=== PATIENT | male | born 1950 | race Caucasian/White ===

== ENCOUNTER 2017-06-04 11:00 | Outpatient (CLI) | payer MEDICARE, BC ==
--- NOTE | ~2017-06-04 | HEMODYNAMI ---
PATIENT:CHRISTA KINGSLEY MEDICAL RECORD: [id number] : 48 LOCATION:[facility] ADMISSION DATE: 06/04/17 Generatedon:06/04/201713:32 Patient name: CHRISTA KINGSLEY Patient #: [id number] SSN: D OB: 1950 Date of study: 06/04/2017 Page: Of Hemodynamic Procedure Report Patient Data Patient Demographics Procedure consent was obtained First Name: CHRISTA Gender: Male Last Name: SANCHO : 1950 Middle Initial: MATTHEW Age: 67 year(s) Patient #: [id number] Race: Additional ID: [id number] Contact details [address]: [address] [place] [address] ROAD State: [place] City: [place] Zip code: [address] Past Medical History Allergies Allergen Reaction Date Comments Reported Other allergy 04/25/2016 Sulfa Other allergy 06/04/2017 Sulfa, tape Admission Admission Data Admission Date: 06/04/2017 Admission Time: 11:00 Admit Source: Other Height (in.): 73 BSA: 2.3 (m2) Height (cm.): 185.42 BMI: 30.87 (kg/m2) Weight (lbs.): 234 Weight (kg.): 106.14 Lab Results Lab Result Date: 06/04/2017 Lab Result Time: 0:00 Biochemistry Name Units Result Min Max BUN mg/dl 22 --(----)-* 7 18 Creatinine mg/dl 1.4 --(----)*- 0.6 1.3 CBC Name Units Result Min Max Hemoglobin g/dl 14.3 --(*---)-- 13.5 17.5 Procedure Procedure Types Cath Procedure Diagnostic Procedure LHC LHC w/Coronaries w/Grafts Miscellaneous Procedures Moderate Sedation up to 30 minutes Procedure Description Procedure Date Procedure Date: 06/04/2017 Procedure Start Time: 13:07 Procedure End Time: 13:26 Procedure Staff Name Function Braden Higgins MD Performing Physician Angelita Rowland RT Scrub David Cam RN Nurse Delia Lamb RT Monitor Procedure Data Cath Procedure Fluoroscopy Diagnostic fluoroscopy Total fluoroscopy Time: 4.6 time: 4.6 min min Diagnostic fluoroscopy Total fluoroscopy dose: dose: 1031 mGy 1031 mGy Contrast Material Contrast Material Type Amount (ml) Isovue 300 124 Entry Location Entry Primary Successful Side Size Upsize Upsize Entry Closure Succes sful Closure Location (Fr) 1 (Fr) 2 (Fr) Remarks Device Remarks Femoral Right 5 Fr Exoseal artery Estimated blood loss: 5 ml Diagnostic catheters Device Type Used For End Catheter Placement Cordis 5Fr JL 4.0 Left Coronary Catheter (MP) Angiography Diagnostic Infinity 5Fr Right Coronary AR MOD Catheter Angiography Diagnostic Infinity 5Fr Multi-vessel IM catheter Angiography Cordis 5Fr Pigtail LV Angiography Catheter (MP) Procedure Complications No complications Procedure Medications Medication Administration Route Dosage Oxygen NC 2 l/min Lidocaine 2% added to field 20 Heparin Flush Bag added to field 2 bags (1000units/500ml NS) 0.9% NaCl I.V. 100 ml/hr Versed I.V. 1 mg Fentanyl I.V. 50 mcg Versed I.V. 1 mg Fentanyl I.V. 50 mcg Versed I.V. 1 mg Fentanyl I.V. 50 mcg Versed I.V. 1 mg Fentanyl I.V. 50 mcg Hemodynamics Rest BSA: 2.3 (m2) HGB: 14.3 (g/dl) O2 Consumption: Estimated: 268.73 (ml/min) O2 Con sumption indexed: Estimated:116.84 (ml/min/m) Heart Rate: 72 (bpm) Pressure Samples Time Site Value (mmHg) Purpose Heart Use Rate(bpm) 13:21 LV 125/9,26 Snapshot 77 Gradients Valve Time Site Site Mean SEP/DFP Peak To Heart Use 1 2 (mmHg) (sec/min) Peak Rate (mmHg) (bpm) Aortic 13:22 LV AO 77 Snapshots Pre Cath Intra NCS Post Cath Vital Signs Time Heart Resp SPO2 NIBP (mmHg) Rhythm Pain Sedation Rate (ipm) (%) Status Level (bpm) 12:50:51 72 19 99 137/77(111) NSR 0 (11) 10(A) , No pain 12:55:06 72 18 100 136/76(102) NSR 0 (11) 10(A) , No pain 12:59:19 74 16 100 125/75(99) NSR 0 (11) 10(A) , No pain 13:03:36 73 16 95 118/71(84) NSR 0 (11) 10(A) , No pain 13:07:46 73 14 100 129/78(106) NSR 0 (11) 10(A) , No pain 13:11:59 73 14 98 124/83(102) NSR 0 (11) 9(A) , No pain 13:16:11 74 15 98 124/77(107) NSR 0 (11) 9(A) , No pain 13:20:25 74 15 98 125/72(91) NSR 0 (11) 9(A) , No pain 13:24:41 74 17 97 113/70(87) NSR 0 (11) 10(A) , No pain 13:31:17 79 16 98 123/77(95) NSR 0 (11) 10(A) , No pain Medications Time Medication Route Dose Verified Delivered Reason Notes Effec tiveness by by 12:54:10 Oxygen NC 2 Braden Buffie used for l/min Ronaldo Cam RN procedure 12:54:16 Lidocaine 2% added 20ml Braden Buffie used for to vial Ronaldo Cam RN procedure field 12:54:54 Heparin Flush added 2 Braden Buffie used for Bag to bags Ronaldo Cam RN procedure (1000units/500ml field NS) 12:55:03 0.9% NaCl I.V. 100 Braden Buffie Per ml/hr Ronaldo Cam RN physician 13:02:51 Versed I.V. 1 mg Braden Buffie for Ronaldo Cam RN sedation 13:02:57 Fentanyl I.V. 50 Braden Buffie for mcg Ronaldo Cam RN sedation 13:07:15 Versed I.V. 1 mg Braden Buffie for Ronaldo Cam RN sedation 13:07:19 Fentanyl I.V. 50 Braden Buffie for mcg Ronaldo Cam RN sedation 13:14:09 Versed I.V. 1 mg Braden Buffie for Ronaldo Cam RN sedation 13:14:13 Fentanyl I.V. 50 Braden Buffie for mcg Ronaldo Cam RN sedation 13:18:19 Versed I.V. 1 mg Braden Buffie for Ronaldo Cam RN sedation 13:18:23 Fentanyl I.V. 50 Braden David for [facility] Ronaldo Cam RN sedation Procedure Log Time Note 12::52 Patient Height : 185.42 inches 12:19:56 Patient Weight : 106.14 lbs 12:19:56 Admit Source: Other 12:20:51 Diagnostic Cath status Elective 12:20:53 Angelita Rowland RT(R) sent for patient. Start room use. 12:20:54 Time tracking: Regular hours 12:20:59 Plan of Care:Hemodynamics will remain stable., Cardiac rhythm will remain stable., Comfort level will be maintained., Respiratory function will remain adequate., Patient/ family verbilizes understanding of procedure., Procedure tolerated without complication., Recovers from procedure without complications.. 12:49:41 Patient received from Pre/Post Procedure Room to CCL 2 Alert and oriented. Tansferred to table in Supine position. 12:49:42 Warm blankets applied, and federica hugger turned on for patient comfort. 12:49:42 Correct patient and procedure confirmed by team. 12:49:44 Signed procedure consent form obtained from patient. 12:49:45 ECG and BP/O2 sat monitors applied to patient. 12:49:46 Vital chart was started 12:49:48 Baseline sample Acquired. 12:49:51 Rhythm: sinus rhythm 12:49:52 Full Disclosure recording started 12:50:10 H&P Date Dictated: 05/30/2017 Within 30 days and on chart., H&P Addendum completed by physician on day of procedure. (MUST COMPLETE FOR ALL OUTPATIENTS). 12:50:11 Pre-procedure instructions explained to patient. 12:50:12 Pre-op teaching completed and patient verbalized understanding. 12:50:13 Family in waiting room. 12:50:14 Patient NPO since Midnight. 12:50:29 Patient allergic to Other allergySulfa, tape 12:50:32 Is the patient allergic to Iodine/contrast media? No. 12:50:33 Was the patient premedicated? No 12:50:34 Is patient on blood thinner?No 12:50:35 Patient diabetic? No. 12:50:37 Previous problem with sedation/anesthesia? No ? 12:50:39 Snore? No 12:50:40 Sleep apnea? No 12:50:41 Deviated septum? No 12:50:42 Opens mouth fully? Yes 12:50:42 Sticks out tongue? Yes 12:50:44 Airway obstruction? No ? 12:50:47 Dentures? No ? 12:50:51 Pre procedure: right dorsailis pedis pulse 2+ Normal; easily identifiable; not easily obliterated 12:50:54 Pre procedure: left dorsailis pedis pulse 2+ Normal; easily identifiable; not easily obliterated 12:50:55 Patient pain scale 0/10 ?. 12:51:04 IV patent on arrival in left forearm with 0.9% NaCl at [facility]. 12:53:11 Lab Result : BUN 22 mg/dl 12:53:11 Lab Result : Creatinine 1.4 mg/dl 12:53:11 Lab Result : Hemoglobin 14.3 g/dl 12:53:15 Lab results completed and on chart. 12:53:19 Right groin area was prepped with chlora-prep and draped in sterile fashion 12:53:20 Alarms reviewed by R. N. 12:53:20 Sharps counted by scrub and verified by R.N. 12:54:10 Oxygen 2 l/min NC was administered by David Cam RN; used for procedure; 12:54:16 Lidocaine 2% 20ml vial added to field was administered by David Cam RN; used for procedure; 12:54:54 Heparin Flush Bag (1000units/500ml NS) 2 bags added to field was administered by David Cam RN; used for procedure; 12:55:03 0.9% NaCl 100 ml/hr I.V. was administered by David Cam RN; Per physician; 12:56:27 Use device set Femoral Dx 12:56:28 Acist Syringe opened to sterile field. 12:56:29 Bag Decanter opened to sterile field. 12:56:29 Medline Cath Pack opened to sterile field. 12:56:30 Terumo 5Fr Iberia Sheath opened to sterile field. 12:56:31 St Alex 260cm J .035 wire opened to sterile field. 12:56:32 Acist Hand Control opened to sterile field. 12:56:32 Acist Manifold opened to sterile field. 12:56:33 Diagnostic Infinity 5Fr Multipack catheter opened to sterile field. 12:56:33 Tegaderm 4 x 4 opened to sterile field. 12:57:22 Zero performed for pressure channel P1 12:59:10 Physician arrived 12:59:11 --------ALL STOP TIME OUT------ 12:59:11 Final Timeout: patient, procedure, and site verified with staff and physician. All members of the team are in agreement. 12:59:13 Right groin site verified by team. 12:59:15 Physical assessment completed. ASA score P 2 - A patient with mild systemic disease as per Braden Higgins MD. 12:59:18 Sedation plan: IV Moderate Sedation Versed, Fentanyl 13:02:51 Versed 1 mg I.V. was administered by David Cam RN; for sedation; 13:02:57 Fentanyl 50 mcg I.V. was administered by David Cam RN; for sedation; 13:06:32 Procedure started. 13:07:15 Versed 1 mg I.V. was administered by David Cam RN; for sedation; 13:07:19 Fentanyl 50 mcg I.V. was administered by David Cam RN; for sedation; 13:07:31 Local anesthetic to right femoral artery with Lidocaine 2% by Braden Higgins MD.INITIAL ACCESS ONLY 13:07:39 A 5 Fr sheath was inserted into the Right Femoral artery 13:09:55 A Cordis 5Fr JL 4.0 Catheter () was advanced over the wire and used for Left Coronary Angiography. 13:10:17 LCA angiography performed. 13:10:20 Injector settings: Ml/sec: 3, Volume: 6, 13:11:36 Catheter removed. 13:11:57 A Diagnostic Infinity 5Fr AR MOD Catheter was advanced over the wire and used for Right Coronary Angiography. 13:12:45 RCA angiography performed. 13:12:48 Injector settings: Ml/sec: 3, Volume: 6, 13:14:09 Versed 1 mg I.V. was administered by David Cam RN; for sedation; 13:14:11 SVG to RCA angiography performed. 13:14:13 Fentanyl 50 mcg I.V. was administered by David Cam RN; for sedation; 13:15:24 SVG to Circ angiography performed. 13:16:18 Catheter removed. 13:17:48 A Diagnostic Infinity 5Fr IM catheter was advanced over the wire and used for Multi-vessel Angiography. 13:18:19 Versed 1 mg I.V. was administered by David Cam RN; for sedation; :18:23 Fentanyl 50 mcg I.V. was administered by David Cam RN; for sedation; 13:20:12 FLORES angiography performed. 13:20:17 Injector settings: Ml/sec: 3, Volume: 6, 13:20:20 Catheter removed. 13:20:25 A Cordis 5Fr Pigtail Catheter (MP) was advanced over the wire and used for LV Angiography. 13:21:52 LV hemodynamics recorded. 13:21:53 LV gram done using KATE 13::55 Injector settings: Ml/sec: 5, Volume: 15, 13:22:40 EF : 60 % 13:23:24 Aortic Root visualized 13:24:00 Catheter removed. 13:24:10 Cordis 5Fr Exoseal opened to sterile field. 13:24:27 Sheath removed intact; hemostasis achieved with Exoseal to the Right Femoral artery. 13:24:30 Procedure ended.(Physican Out) 13:24:58 Fluoroscopy time 04.60 minutes. 13:25:00 Contrast amount:Isovue 300 124ml. 13:25:02 Flurop Dose total: 1031 13:25:02 Fluoroscopy dose: 1031 mGy 13:25: Sharps counted by scrub and verified by R.N. 13:25:21 Insertion/operative site no bleeding no hematoma. 13:25:23 Post-op/insertion site Right Femoral artery dressed using a 4 x 4 and Tegaderm. 13:25:26 Post right femoral artery:stable 13:25:27 Post Procedure Pulses reassessed and unchanged 13:25:30 Post procedure rhythm: unchanged. 13:25:33 Estimated blood loss: 5 ml 13:25:34 Post procedure instruction explained to patient.Patient verbalizes understanding. 13:25:38 Patient needs reinforcement of post procedure teaching. 13:25:56 Procedure type changed to Cath procedure, Diagnostic procedure, LHC, LHC w/Coronaries w/Grafts, Miscellaneous Procedures, Moderate Sedation up to 30 minutes 13:25:57 Procedure and supply charges have been captured, reviewed, submitted and are correct. 13:26:02 Procedure Complication : No complications 13:26:05 Vital chart was stopped 13:26:06 See physician's report for complete and final results. 13:26:09 Report given to Pre/Post Procedure Room. 13:26:12 Patient transfered to Pre/Post Procedure Room with Stretcher. 13:26:15 Procedure ended. 13:26:15 Full Disclosure recording stopped 13:26:20 End room use (Document Last) Device Usage Item Name Manufacture Quantity Catalog Hospital Part Current Minimal Lo t# / Number Charge Number Stock Stock Serial# Code Acist Acist 1 [id number] [id number] 998538 032351 20 Syringe [employer] Bag Microtek 1 2002S 722703 70865 644568 5 Decanter [employer] Medline Cardinal 1 [id number] 682282 69591 465494 5 Cath Pack Health Terumo 5Fr Terumo 1 [id number] 468579 892876 135140 [address] [facility] Alex 1 330862 399396 555365 056865 30 260cm J .035 wire Acist Hand Acist 1 22535 427415 209764 375543 5 Control [employer] Inc Acist Acist 1 77620 206954 748999 431323 5 Manifold [employer] Diagnostic Cardinal 1 [id number] 706605 85524 181961 30 Infinity Health 5Fr Multipack catheter Tegaderm 4 3M 1 1626W 726523 020481 932822 5 x 4 Cordis 5Fr Cardinal 1 019497 5 JL 4.0 Health Catheter (MP) Diagnostic Cardinal 1 [id number] 180054 544124 143302 15 Infinity Health 5Fr AR MOD Catheter Diagnostic Cardinal 1 [id number] 052303 995464 027628 5 Inf[employer] Health 5Fr IM catheter Cordis 5Fr Cardinal 1 865998 5 Pigtail Health Catheter (MP) Cordis 5Fr Cardinal 1 EX500 406012 558450 177549 10 [employer] Signature Audit [place] Stage Time Signature Unsigned Intra-Procedure 06/04/2017 Delia Lamb 1:32:25 PM RT(R) Signatures Monitor : Delia Lamb RT Signature : Date : Time : [facility] [address] [place] [address]
[~2017-06-04 11:00] MED LIST: BAYER CHEWABLE81 MG PO; CLARITIN 10 MG10 MG PO; DIOVAN80 MG PO; HEMOCYTE PLUS C1 CAP PO; K-DUR20 MEQ PO; LASIX40 MG PO; LOPRESSOR25 MG PO; OMEPRAZOLE20 M1 PO; PROTONIX40 MG PO; ULTRAM50 MG PO; UROXATRAL10 MG PO; ZOCOR20 MG PO
[2017-06-04] MEDS ORDERED: LISINOPRIL5 MG PO (11:22)
[2017-06-04 11:33] VITALS: BP 145/84; BMI 29.0
[2017-06-04 11:47] LABS: BASOPHILS 0.8 % (0-2); EOSINOPHILS 5.3 % (0-7); HEMOGLOBIN 14.3 g/dL (13.5-17.5); IMMATURE GRANULOCYTES 0.1 % (0-5); LYMPHOCYTES 27.2 % (15-50); MCH 32.1 pg (26.0-34.0); MCHC 34.9 g/dL (31.0-37.0); MCV 92.1 fL (80.0-100.0); MEAN PLATELET VOLUME 9.6 fL (7.4-10.4); MONOCYTES 7.7 % (2-11); NEUTROPHILS 58.9 % (40-80); RBC 4.45 10x6/uL (4.20-6.10); RDW 13.3 % (11.5-14.5); WBC 7.7 10x3/uL (4.8-10.8)
[2017-06-04 11:57] LABS: ANION GAP 9.5 mmol/L (8-16); CALCIUM 8.9 mg/dL (8.5-10.1); CARBON DIOXIDE 26.9 mmol/L (21.0-32.0); CREATININE - SERUM 1.4 mg/dL (0.6-1.3); POTASSIUM - SERUM 4.4 mmol/L (3.5-5.1)
[2017-06-04 11:58] LABS: PLATELET COUNT 168 10x3/uL (130-400)
--- NOTE | 2017-06-04 14:23 | NUR ---
1400 LYING FLAT, ROOM AIR WITH NO DISTRESS. NSR RATE 59 WNO C/O CHEST PAIN. PULSES PALP X 4. R GROIN 5F EXOSEAL C/D/I W NO HEMATOMA OR BLEEDING. AT SIDE.
--- NOTE | 2017-06-04 15:25 | NUR ---
1430 REMIANS FLAT, ROOM AIR. R GROIN 5F EXO C/D/I. DENIES NEEDS AT THIS TIME. 1515 HOB ELEVATED, WILL MONITOR R GROINF OR BLEEDING. EATING TURKEY SANDWICH AND SIPPING SODA. ALL VITALS WNL.
--- NOTE | 2017-06-04 15:49 | NUR ---
PIV REMOVED FROM LEFT AC WITH BANDAID APPLIED. R GROIN REMAINS C/D/I WITH NO HEMATOMA OR BLEEDING. D/C INSTRUCTIONS DISCUSSED WITH PATIENT AND AT BEDSIDE. UP TO BEDSIDE TO DRESS WITH ASSIST FROM .
--- NOTE | 2017-06-04 16:06 | NUR ---
WHEELED TO BATHROOM TO VOID, WHEELED OUT VIA WHEELCHAIR BY CATH TEAM. AT SIDE.
== END 2017-06-04 16:07 | disposition home or self-care (01) ==
LOC: D.CATH 11:00
PROVIDERS: Internal Medicine Cardiovascular Disease
DX: I25.10 Atherosclerotic heart disease of native coronary artery without angina pectoris (principal); Z95.1 Presence of aortocoronary bypass graft; I35.1 Nonrheumatic aortic (valve) insufficiency; Z01.812 Encounter for preprocedural laboratory examination

== ENCOUNTER → 2018-09-01 10:32 | Outpatient (CLI) | payer MEDICARE, BC ==
[~2018-09-01 10:32] MED LIST changes: +LISINOPRIL5 MG PO
== END | disposition home or self-care (01) ==
LOC: D.HCCARDIO 10:32
DX: I25.10 Atherosclerotic heart disease of native coronary artery without angina pectoris (principal)

== ENCOUNTER 2018-10-08 07:56 | Outpatient (CLI) | payer MEDICARE, BC ==
[~2018-10-08] VITALS: Ht 188 cm; Wt 100.0 kg
[2018-10-08 08:27] LABS: BASOPHILS 1.2 % (0-2); EOSINOPHILS 8.9 % (0-7); HEMATOCRIT 39.9 % (42.0-54.0); HEMOGLOBIN 14.1 g/dL (13.5-17.5); IMMATURE GRANULOCYTES 0.2 % (0-5); LYMPHOCYTES 33.6 % (15-50); MCH 32.2 pg (26.0-34.0); MCHC 35.3 g/dL (31.0-37.0); MCV 91.1 fL (80.0-100.0); MEAN PLATELET VOLUME 9.4 fL (7.4-10.4); MONOCYTES 8.1 % (2-11); PLATELET COUNT 163 10x3/uL (130-400); RBC 4.38 10x6/uL (4.20-6.10); RDW 12.5 % (11.5-14.5); WBC 4.9 10x3/uL (4.8-10.8)
[2018-10-08 08:35] LABS: ANION GAP 14.8 mmol/L (8-16); CALCIUM 9.3 mg/dL (8.5-10.1); CARBON DIOXIDE 27.6 mmol/L (21.0-32.0); CREATININE - SERUM 1.4 mg/dL (0.6-1.3); POTASSIUM - SERUM 4.4 mmol/L (3.5-5.1)
[2018-10-08 08:45] VITALS: Ht 188 cm; Wt 100.0 kg
[2018-10-08 08:46] LABS: APTT 27.1 SECONDS (22.8-39.4); INR 0.99 (0.85-1.17); PROTIME 12.6 SECONDS (11.6-15.0)
--- NOTE | 2018-10-08 11:55 | NUR ---
REC'D FROM SPECIALS VIA BED ACCOMPANIED BY SPOUSE. LYLY FROM RADIOLOGY REPORTED HE CAN GO HOME DUE TO PROCEDURE BEING CANCELLED PER DR PETER. REGULAR TRAY SERVED AND THEN WILL DC.
--- NOTE | 2018-10-08 12:20 | NUR ---
IV DC'D WITH CATHETER INTACT. WRITTEN AND VERBAL DC INST TO FOLLOW UP WITH DR RODRIGUEZ GIVEN TO PT. VERBALIZED UNDERSTANDING.
--- NOTE | 2018-10-08 12:30 | NUR ---
DC'D HOME WITH FAMILY VIA PRIVATE VEHICLE. TAKEN TO VEHICLE VIA WC. STABLE AT TIME OF DC.
== END 2018-10-08 12:30 | disposition home or self-care (01) ==
LOC: D.SP 07:56 → D.CT 09:00 → D.SP 09:00
PROVIDERS: Specialist
DX: M48.8X4 Other specified spondylopathies, thoracic region (principal)

== ENCOUNTER → 2019-09-23 10:59 | Outpatient (CLI) | payer MEDICARE, BC ==
[2018-10-08 08:45] VITALS: BMI 28.3
== END | disposition home or self-care (01) ==
LOC: D.HCCECHO 10:59
PROVIDERS: ATTEND Internal Medicine Cardiovascular Disease
DX: I25.10 Atherosclerotic heart disease of native coronary artery without angina pectoris (principal)

== ENCOUNTER → 2020-02-01 09:43 | Outpatient (CLI) | payer MEDICARE, BC ==
[2018-10-08 08:45] VITALS: BMI 28.3
== END | disposition home or self-care (01) ==
LOC: D.HCCECHO 09:30
PROVIDERS: ATTEND Internal Medicine Cardiovascular Disease
DX: I10 Essential (primary) hypertension (principal)

== ENCOUNTER → 2020-11-04 09:16 | Outpatient (CLI) | payer MEDICARE, BC ==
[2018-10-08 08:45] VITALS: BMI 28.3
--- NOTE | 2020-11-07 10:15 | EC ---
PATIENT:CHRISTA KINGSLEY JR DATE OF SERVICE: 11/04/20 SEX: M MEDICAL RECORD: [id number] DATE OF : [birth year] LOCATION:[facility] AGE OF PATIENT: 70 ADMISSION DATE: 11/04/20 REFERRING PHYSICIAN: INTERPRETING PHYSICIAN: ANALI ST MD ECHOCARDIOGRAM REPORT ECHO CHARGES 4 ECHO COMPLETE Date: 11/04/20 CLINICAL DIAGNOSIS: HX OF CARDIOMYOPATHY/CABG ASSESS EF/MR/AI/TR/AO SCL RECENT ABLATION AND CHEMO ECHOCARDIOGRAPHIC MEASUREMENTS (adult normal given) AC root (d.<3.7cm) 4.1 cm LV Septum d (<1.2 cm> 1.4 cm Valve Excursion 2.2 cm LV Septum (systole) 1.6 cm Left Atria (s.<4.0cm> 4.7 cm LVPW d(<1.2cm) 1.3 cm RV (d.<2.3cm) 4.5 cm LVPW (sytole) 1.7 cm LV diastole(<5.6CM) 4.3 cm MV E-F(>70mm/sec) cm LV systole 2.3 cm LVOT Diameter 2.0 cm MV exc.(>10mm) 1.8 cm Est.ejection fraction (50-75%) % DOPPLER: LVIT cm/sec A 109.0cm/sec E 81.0 cm/sec LA cm/sec RVSP 36 mmHg LVOT 127 cm/sec AOP1/2T 637 m/s Asc. Ao 205 cm/sec RVOT 102 cm/sec RA cm/sec PA 160 cm/sec AV Gradient Peak 16.84mmHg AV Mean 9.19 mmHg AV Area 2.0 cm MV Gradient Peak 6.74 mmHg MV Mean 2.84 mmHg MV Area cm COMMENTS: Orthopedic Dentist: 2 NIMISHA ESCALANTE Telephone Claims Representative: 2 Dr. Higgins TAPE# PACS Pericardial Effusion N DATE OF SERVICE: Adequate 2D, color flow imaging, spectral Doppler, and M-Mode. LVH is present. LV internal dimensions are normal. Wall motion normal. EF greater than or equal to 55%. Aortic valve is sclerotic. No stenosis by Doppler interrogation. Mild AI by color flow imaging. Left atrium is dilated at 4.7 cm. Mitral valve shows no prolapse. Trace MR. Right-sided chambers are grossly normal. Trace TR. ECHOCARDIOGRAM REPORT [id number] CHRISTA KINGSLEY JR TRANSINT:[id number] Voice Confirmation ID: [id number] DOCUMENT ID: [id number] ANALI ST MD at 1015 CC: [id number] DICTATION DATE: 11/04/20 1247 HAND BASEBALL SEWER: 11/04/201909 DEP CLI 11/04/20 [place] [address] [place] [id number]
== END | disposition home or self-care (01) ==
LOC: D.HCCECHO 09:16
PROVIDERS: ATTEND Internal Medicine Cardiovascular Disease
DX: I42.9 Cardiomyopathy, unspecified (principal)